=== PATIENT | female | born 1975 | race Caucasian/White ===

== ENCOUNTER 2022-04-08 17:31 | Emergency (ER) | payer OTHER ==
[~2022-04-08 17:31] MED LIST: NORCO 5-325 TA1 EACH PO; PROVERA10 MG PO
[2022-04-08 19:49] LABS: RED BLOOD COUNT 5.02 M/UL (4.00-5.10); WHITE BLOOD COUNT 2.1 K/UL (4.5-11.0)
[2022-04-08 20:12] LABS: BUN/CREATININE RATIO 14 (0-10)
== END 2022-04-08 23:47 | disposition home or self-care (01) ==
LOC: ER1 17:31
PROVIDERS: Physician Assistant
DX: U07.1 COVID-19 (principal); D72.819 Decreased white blood cell count, unspecified; D69.6 Thrombocytopenia, unspecified
CPT/HCPCS: 71045; 80053; 82550; 82553; 83880; 84484; 85025; 85379; 85610; 85730; 93005; 99285